=== PATIENT | female | born 1990 | race Caucasian/White ===

== ENCOUNTER 2019-03-16 09:23 | Emergency (ER) | payer MEDICAID ==
[~2019-03-16] VITALS: Ht 152.4 cm; Wt 88.8 kg
[~2019-03-16 09:23] MED LIST: ALBU8.5H5 INH; BUPR1FIL7 SL; IBUP-1222 PO; TRAM50TA2
[2019-03-16 10:08] LABS: MICROSCOPIC AUTO
[2019-03-16 10:10] LABS: CULTURE INDICATED? NO
--- NOTE | 2019-03-16 10:20 | NUR ---
PRODUCTION SUPERVISOR: PT TO ROOM FROM [facility]
[2019-03-16 10:27] LABS: BASOPHILS # (AUTO) 0.04 x10^3/uL (0-0.1); BASOPHILS % (AUTO) 1 % (0-1); EOSINOPHILS # (AUTO) 0.07 x10^3/uL (0-0.4); EOSINOPHILS % (AUTO) 2 % (1-7); LYMPHOCYTES # (AUTO) 0.71 x10^3/uL (1-3.4); LYMPHOCYTES % (AUTO) 15 % (22-44); MD NO; MEAN CORPUSCULAR HGB CONC 33.4 g/dL (32.4-35.8); MEAN CORPUSCULAR VOLUME 107.6 fL (80-100); MEAN PLATELET VOLUME 8.1 fL (7.4-10.4); MONOCYTES # (AUTO) 0.29 x10^3/uL (0.2-0.8); MONOCYTES % (AUTO) 6 % (2-9); NEUTROPHILS # (AUTO) 3.58 x10^3/uL (1.8-6.8); NEUTROPHILS % (AUTO) 76 % (42-75); PLATELET COUNT 163 x10^3/uL (130-400); RED BLOOD COUNT 4.38 x10^6/uL (3.82-5.3); RED CELL DISTRIBUTION WIDTH 13.3 % (9.6-15.2)
--- NOTE | 2019-03-16 10:30 | NUR ---
PATIENT WALKED FROM LOBBY TO ROOM WITHOUT C/O. PATIENT GAVE UA SAMPLE AND HAD LABS DRAWN. VSS.
--- NOTE | 2019-03-16 10:31 | NUR ---
REPORT TO PERLA
[2019-03-16 10:35] LABS: ALANINE AMINOTRANSFERASE 127 U/L (12-78); ALBUMIN 4.1 g/dL (3.4-5.0); ANION GAP 9 mmol/L (5-15); CHLORIDE 105 mmol/L (98-107); CREATININE 0.73 mg/dL (0.55-1.02)
[2019-03-16 10:40] LABS: ALKALINE PHOSPHATASE 87 U/L (45-117); TOTAL PROTEIN 7.4 g/dL (6.4-8.2)
--- NOTE | 2019-03-16 10:52 | NUR ---
RECEIVED REPORT FROM PERLA YANCEY
[2019-03-16] MEDS ORDERED: ONDANSETRON ODT 4 MG ONE (11:11)
[2019-03-16] MEDS ORDERED: ONDANSETRON ODT 4 MG PO ONE (11:30)
--- NOTE | 2019-03-16 11:50 | NUR ---
PT RESTING IN BED AWAITING FURTHER TEST RESULTS.
--- NOTE | 2019-03-16 13:13 | NUR ---
PT DISCHARGED WITH DISCHARGE INSTRUCTIONS AND FOLLOW UP INSTRUCTIONS. RX GIVEN. PT UP AMBULATORY AND STABLE ON FEET.
[2019-03-16 13:14] VITALS: BP 133/60
== END 2019-03-16 13:16 | disposition home or self-care (01) ==
LOC: ED 12:20
DX: K85.20 Alcohol induced acute pancreatitis without necrosis or infection (principal); J45.909 Unspecified asthma, uncomplicated; F17.200 Nicotine dependence, unspecified, uncomplicated
CPT/HCPCS: 36415; 76700; 80053; 80307; 81001; 83690; 84703; 85025; 99284; Q0162

== ENCOUNTER 2019-03-17 11:11 | Emergency (ER) | payer MEDICAID ==
[~2019-03-17] VITALS: Ht 152.4 cm; Wt 89.0 kg
[2019-03-17 11:20] VITALS: BP 155/87
== END 2019-03-17 12:40 | disposition home or self-care (01) ==
LOC: ED 12:23
DX: K85.20 Alcohol induced acute pancreatitis without necrosis or infection (principal)
CPT/HCPCS: 36415; 83690; 99283